=== PATIENT | female | born 1975 | race Caucasian/White ===

== ENCOUNTER 2018-03-30 17:44 | Emergency (ER) | payer OTHER, MEDICARE ==
[2018-03-30] MEDS: ONDANSETRON (ODT) 4 MG TAB ODT (20:01)
[2018-03-30] MEDS: HYDROCODONE/APAP (5/325) TAB PO (20:01)
[2018-03-30 20:15] LABS: ADD MAN DIFF? NO
[2018-03-30 20:23] LABS: WHITE BLOOD COUNT 10.1 10^3/ul (4.8-10.8)
[2018-03-30 20:23] LABS: BASOPHIL # 0.1 10^3/ul (0.0-0.1); BASOPHILS % 0.5 % (0.0-2.0); EOSINOPHILS # 0.2 10^3/ul (0.0-0.5); EOSINOPHILS % 2.1 % (0.0-7.0); HEMATOCRIT 39.6 % (37.0-47.0); HEMOGLOBIN 12.3 g/dl (12.0-16.0); LYMPHOCYTES # 3.6 10^3/ul (0.8-2.9); LYMPHOCYTES % 35.9 % (15.0-51.0); MEAN CORPUSCULAR HEMOGLOBIN 27.5 pg (29.0-33.0); MEAN CORPUSCULAR HGB CONC 31.1 g/dl (32.0-37.0); MEAN CORPUSCULAR VOLUME 88.4 fl (82.0-101.0); MEAN PLATELET VOLUME 9.9 fl (7.4-10.4); MONOCYTE # 0.6 10^3/ul (0.3-0.9); NEUTROPHIL # 5.6 10^3/ul (1.6-7.5); PLATELET COUNT 319 10^3/UL (140-415); RED BLOOD COUNT 4.48 10^6/ul (4.20-5.40); RED CELL DISTRIBUTION WIDTH 13.3 % (11.5-14.5)
[2018-03-30 20:35] LABS: ADD UMIC NO; UR ASCORBIC ACID NEGATIVE (NEGATIVE); UR BILIRUBIN (Dip) NEGATIVE (NEGATIVE); UR BLOOD (Dip) NEGATIVE (NEGATIVE); UR CLARITY SLIGHTLY CLOUDY (CLEAR); UR COLOR YELLOW (YELLOW); UR GLUCOSE (Dip) NEGATIVE (NEGATIVE); UR KETONES (Dip) NEGATIVE (NEGATIVE); UR LEUKOCYTE ESTERASE (Dip) NEGATIVE Leu/ul (NEGATIVE); UR NITRITE (Dip) NEGATIVE (NEGATIVE); UR RBC 0 /HPF (0-5); UR SPECIFIC GRAVITY (Dip) 1.018 (1.003-1.030); UR SQUAMOUS EPITHELIAL CELL MODERATE /HPF (FEW); UR TOTAL PROTEIN (Dip) NEGATIVE (NEGATIVE); UR UROBILINOGEN (Dip) NEGATIVE (NEGATIVE); UR WBC 0 /HPF (0-5)
[2018-03-30 20:39] LABS: ALANINE AMINOTRANSFERASE 26 IU/L (13-69); ALBUMIN 4.2 g/dl (3.3-4.9); ALBUMIN/GLOBULIN RATIO 1.16; ALKALINE PHOSPHATASE 89 IU/L (42-121); ANION GAP 13 (8-16); ASPARTATE AMINO TRANSFERASE 24 IU/L (15-46); BILIRUBIN,INDIRECT 0.2 mg/dl (0-1.1); BILIRUBIN,TOTAL 0.2 mg/dl (0.2-1.3); BLOOD UREA NITROGEN 16 mg/dl (7-20); CALCIUM 9.4 mg/dl (8.4-10.2); CARBON DIOXIDE 30 mmol/L (21-31); CHLORIDE 102 mmol/L (97-110); CREATININE 0.69 mg/dl (0.44-1.00); GLUCOSE 119 mg/dl (70-220); POTASSIUM 4.6 mmol/L (3.5-5.1); SODIUM 140 mmol/L (135-144); TOTAL PROTEIN 7.8 g/dl (6.1-8.1)
== END 2018-03-30 21:18 | disposition home or self-care (01) ==
LOC: FTE 17:44
DX: N93.8 Other specified abnormal uterine and vaginal bleeding (principal)
CPT/HCPCS: 36415; 76830; 76856; 80053; 81001; 81003; 85025; 99284-25

== ENCOUNTER 2019-03-14 20:45 | Inpatient (IN) | payer OTHER ==
[2019-03-14 23:10] LABS: ADD MAN DIFF? NO
[2019-03-14 23:11] LABS: BASOPHIL # 0.1 10^3/ul (0.0-0.1); BASOPHILS % 0.5 % (0.0-2.0); EOSINOPHILS # 0.2 10^3/ul (0.0-0.5); EOSINOPHILS % 1.9 % (0.0-7.0); HEMATOCRIT 40.6 % (37.0-47.0); HEMOGLOBIN 12.5 g/dl (12.0-16.0); LYMPHOCYTES # 4.4 10^3/ul (0.8-2.9); LYMPHOCYTES % 39.7 % (15.0-51.0); MEAN CORPUSCULAR HEMOGLOBIN 27.1 pg (29.0-33.0); MEAN CORPUSCULAR HGB CONC 30.8 g/dl (32.0-37.0); MEAN CORPUSCULAR VOLUME 87.9 fl (82.0-101.0); MEAN PLATELET VOLUME 9.7 fl (7.4-10.4); MONOCYTE # 0.6 10^3/ul (0.3-0.9); MONOCYTES % 5.2 % (0.0-11.0); NEUTROPHIL # 5.8 10^3/ul (1.6-7.5); PLATELET COUNT 331 10^3/UL (140-415); RED BLOOD COUNT 4.62 10^6/ul (4.20-5.40); RED CELL DISTRIBUTION WIDTH 13.9 % (11.5-14.5)
[2019-03-14 23:11] LABS: WHITE BLOOD COUNT 11.2 10^3/ul (4.8-10.8)
[2019-03-14 23:24] LABS: ADD UMIC YES; UR ASCORBIC ACID NEGATIVE (NEGATIVE); UR BACTERIA FEW /HPF (NONE SEEN); UR BILIRUBIN (Dip) NEGATIVE (NEGATIVE); UR BLOOD (Dip) NEGATIVE (NEGATIVE); UR CLARITY CLOUDY (CLEAR); UR COLOR YELLOW (YELLOW); UR GLUCOSE (Dip) NEGATIVE (NEGATIVE); UR KETONES (Dip) NEGATIVE (NEGATIVE); UR LEUKOCYTE ESTERASE (Dip) NEGATIVE Leu/ul (NEGATIVE); UR MUCUS FEW /HPF (NONE SEEN); UR NITRITE (Dip) NEGATIVE (NEGATIVE); UR RBC 3 /HPF (0-5); UR SPECIFIC GRAVITY (Dip) 1.011 (1.003-1.030); UR SQUAMOUS EPITHELIAL CELL MANY /HPF (FEW); UR TOTAL PROTEIN (Dip) NEGATIVE (NEGATIVE); UR UROBILINOGEN (Dip) NEGATIVE (NEGATIVE); UR WBC 2 /HPF (0-5)
[2019-03-14 23:29] LABS: INR 0.93; PROTIME 12.6 Sec (11.9-14.9)
[2019-03-14 23:30] LABS: PARTIAL THROMBOPLASTIN TIME 33.2 Sec (23.0-35.0)
[2019-03-14 23:35] LABS: ALANINE AMINOTRANSFERASE 55 IU/L (13-69); ALBUMIN 4.5 g/dl (3.3-4.9); ALBUMIN/GLOBULIN RATIO 1.07; ALKALINE PHOSPHATASE 113 IU/L (42-121); ANION GAP 9 (5-13); ASPARTATE AMINO TRANSFERASE 47 IU/L (15-46); BILIRUBIN,INDIRECT 0.4 mg/dl (0-1.1); BILIRUBIN,TOTAL 0.4 mg/dl (0.2-1.3); BLOOD UREA NITROGEN 14 mg/dl (7-20); CALCIUM 10.4 mg/dl (8.4-10.2); CARBON DIOXIDE 32 mmol/L (21-31); CHLORIDE 99 mmol/L (97-110); CREATININE 0.73 mg/dl (0.44-1.00); Estimated GFR > 60 mL/min (>60); GLUCOSE 111 mg/dl (70-220); LIPASE 104 U/L (23-300); POTASSIUM 4.5 mmol/L (3.5-5.1); SODIUM 140 mmol/L (135-144); TOTAL PROTEIN 8.7 g/dl (6.1-8.1)
[2019-03-14 23:47] LABS: B-TYPE NATRIURETIC PEPTIDE 52 PG/ML (0-125); TROPONIN-I < 0.012 ng/ml (0.000-0.120)
[2019-03-15] MEDS: morphine 4 MG/ML VIAL IV (02:29)
[2019-03-15] MEDS ORDERED: BISACODYL (EC) 5 MG TAB PO (03:30)
[2019-03-15] MEDS ORDERED: NACL 0.9% 3 ML SYG IV (03:30)
[2019-03-15] MEDS ORDERED: ACETAMINOPHEN 325 MG TAB PO (03:30)
[2019-03-15] MEDS ORDERED: DOCUSATE SODIUM 100 MG CAP PO (03:30)
[2019-03-15] MEDS ORDERED: ONDANSETRON 4 MG INJ IV (03:30)
[2019-03-15 05:35] LABS: HAAIG REFLEX REFLEX FILED
[2019-03-15 05:54] LABS: HEMOGLOBIN A1C 5.7 % (0-5.9)
[2019-03-15 05:58] LABS: CHOLESTEROL 232 mg/dl (100-200)
[2019-03-15 05:58] LABS: CHOL/HDL RATIO 5.6 RATIO; HDL CHOLESTEROL 41 mg/dl (34-88); LDL CHOLESTEROL,CALCULATED 152 mg/dl; TRIGLYCERIDES 193 mg/dl (0-149)
[2019-03-15 06:14] LABS: FREE T3 5.17 pg/ml (2.77-5.27)
[2019-03-15 06:14] LABS: FREE T4 (FREE THYROXINE) 1.41 ng/dl (0.64-1.79)
[2019-03-15 06:28] LABS: HEPATITIS B SURFACE ANTIGEN NEGATIVE (NEGATIVE)
[2019-03-15] MEDS: BUMETANIDE 1 MG INJ IV (06:41)
[2019-03-15] MEDS: HEPARIN 5,000 UNIT/1 ML VIAL SC ×3 (06:44→22:15)
[2019-03-15 06:45] LABS: HEPATITIS B CORE ANTIBODY NEGATIVE (NEGATIVE); HEPATITIS C VIRAL ANTIBODY NEGATIVE (NEGATIVE)
[2019-03-15] MEDS: [UNRECOGNIZED DRUG - OTHER] XX ×2 (07:00→15:00)
[2019-03-15 09:14] LABS: VALPROATE < 10 ug/ml (50-100)
[2019-03-15 10:11] LABS: PARATHYROID HORMONE 41.2 pg/ml (24.0-73.0)
[2019-03-15 13:28] LABS: HEPATITIS B SURFACE ANTIBODY NEGATIVE (NEGATIVE)
[2019-03-15] MEDS: HYDROCODONE/APAP (10/325) TAB PO (15:48)
[2019-03-15] MEDS: FUROSEMIDE 20 MG INJ IV (17:22)
[2019-03-15] MEDS: HYOSCYAMINE 0.125 MG SUBL TAB PO ×2 (17:59→22:07)
[2019-03-15] MEDS ORDERED: LURASIDONE HCL 10 MG PO (21:00)
[2019-03-15] MEDS ORDERED: NON-FORMULARY/PATIENT OWN MED (Lurasidone Hcl (Latuda) 20 MG) PO (21:00)
[2019-03-15] MEDS: LATUDA 20 MG TAB PO (22:07)
[2019-03-15 22:46] LABS: ADD UMIC NO; UR ASCORBIC ACID NEGATIVE (NEGATIVE); UR BILIRUBIN (Dip) NEGATIVE (NEGATIVE); UR BLOOD (Dip) NEGATIVE (NEGATIVE); UR CLARITY CLEAR (CLEAR); UR COLOR YELLOW (YELLOW); UR GLUCOSE (Dip) NEGATIVE (NEGATIVE); UR KETONES (Dip) NEGATIVE (NEGATIVE); UR LEUKOCYTE ESTERASE (Dip) NEGATIVE Leu/ul (NEGATIVE); UR NITRITE (Dip) NEGATIVE (NEGATIVE); UR SPECIFIC GRAVITY (Dip) 1.017 (1.003-1.030); UR TOTAL PROTEIN (Dip) NEGATIVE (NEGATIVE); UR UROBILINOGEN (Dip) NEGATIVE (NEGATIVE)
[2019-03-15] MEDS: DEXAMETHASONE 1 MG TAB PO (23:11)
[2019-03-15 23:13] LABS: CREATININE,URINE RANDOM 97.91 mg/dl (20-320)
[2019-03-15 23:29] LABS: PROTEIN URINE < 5.0 mg/dl (0.0-11.9); PROTEIN/CREAT RATIO 0.05 RATIO
[2019-03-16] MEDS: HYOSCYAMINE 0.125 MG SUBL TAB PO ×2 (05:42→15:13)
[2019-03-16] MEDS: FUROSEMIDE 20 MG INJ IV (05:44)
[2019-03-16] MEDS: HEPARIN 5,000 UNIT/1 ML VIAL SC ×2 (05:50→15:15)
[2019-03-16 06:02] LABS: ADD MAN DIFF? NO
[2019-03-16 06:06] LABS: WHITE BLOOD COUNT 10.5 10^3/ul (4.8-10.8)
[2019-03-16 06:06] LABS: BASOPHIL # 0.1 10^3/ul (0.0-0.1); BASOPHILS % 0.5 % (0.0-2.0); EOSINOPHILS % 0.4 % (0.0-7.0); HEMATOCRIT 42.5 % (37.0-47.0); HEMOGLOBIN 13.3 g/dl (12.0-16.0); LYMPHOCYTES # 2.6 10^3/ul (0.8-2.9); LYMPHOCYTES % 25.1 % (15.0-51.0); MEAN CORPUSCULAR HEMOGLOBIN 27.1 pg (29.0-33.0); MEAN CORPUSCULAR HGB CONC 31.3 g/dl (32.0-37.0); MEAN CORPUSCULAR VOLUME 86.7 fl (82.0-101.0); MONOCYTE # 0.5 10^3/ul (0.3-0.9); MONOCYTES % 4.3 % (0.0-11.0); NEUTROPHIL # 7.3 10^3/ul (1.6-7.5); NEUTROPHILS % 69.1 % (39.0-77.0); PLATELET COUNT 348 10^3/UL (140-415)
[2019-03-16 06:41] LABS: ALANINE AMINOTRANSFERASE 60 IU/L (13-69); ALBUMIN 4.4 g/dl (3.3-4.9); ALKALINE PHOSPHATASE 88 IU/L (42-121); ANION GAP 10 (5-13); ASPARTATE AMINO TRANSFERASE 53 IU/L (15-46); BILIRUBIN,INDIRECT 0.4 mg/dl (0-1.1); BILIRUBIN,TOTAL 0.4 mg/dl (0.2-1.3); BLOOD UREA NITROGEN 15 mg/dl (7-20); CALCIUM 9.6 mg/dl (8.4-10.2); CARBON DIOXIDE 29 mmol/L (21-31); CHLORIDE 99 mmol/L (97-110); Estimated GFR > 60 mL/min (>60); GLUCOSE 132 mg/dl (70-220); POTASSIUM 4.6 mmol/L (3.5-5.1); SODIUM 138 mmol/L (135-144); TOTAL PROTEIN 8.8 g/dl (6.1-8.1)
[2019-03-16] MEDS: FLUTICASONE/VILANTEROL 100-25 INH (10:05)
[2019-03-16] MEDS: ARIPIPRAZOLE 10 MG TAB PO (12:18)
[2019-03-16 12:57] LABS: PROLACTIN 14.8 ng/mL
== END 2019-03-16 18:55 | disposition home or self-care (01) | DRG 300 ==
LOC: E/R 20:45 → 2NE 03-15 04:07
PROVIDERS: Family Medicine
DX: I87.2 Venous insufficiency (chronic) (peripheral) (principal); Z68.43 Body mass index [BMI] 50.0-59.9, adult; F33.2 Major depressive disorder, recurrent severe without psychotic features; K76.0 Fatty (change of) liver, not elsewhere classified; E66.01 Morbid (severe) obesity due to excess calories; N93.8 Other specified abnormal uterine and vaginal bleeding; G40.909 Epilepsy, unspecified, not intractable, without status epilepticus; R10.11 Right upper quadrant pain; J45.30 Mild persistent asthma, uncomplicated; E78.5 Hyperlipidemia, unspecified; F25.0 Schizoaffective disorder, bipolar type; G47.30 Sleep apnea, unspecified
CPT/HCPCS: 36415; 71045; 74176; 76705; 80053; 80061; 80164; 81001; 81003; 82533; 82570; 83036; 83520; 83690; 83880; 83970; 84146; 84439; 84443; 84481; 84484; 84703; 85025; 85610; 85730; 86704; 86706; 86708; 86709; 86803; 87340; 93005; 93306; 93970; 96374; 99285-25